=== PATIENT | male | born 1985 | race Two or more races ===

== ENCOUNTER 2019-10-29 19:42 | Emergency (ER) | payer OTHER ==
[~2019-10-29] VITALS: Ht 185.4 cm; Wt 81.4 kg
[2019-10-29 20:07] VITALS: BP 110/64
--- NOTE | 2019-10-29 20:29 | NUR ---
NO ANSWER FROM LOBBY
--- NOTE | 2019-10-29 21:03 | NUR ---
NOT IN LOBBY X 2
--- NOTE | 2019-10-29 21:40 | NUR ---
NO RESPONSE FROM LOBVALDEMAR X3
== END 2019-10-29 21:55 | disposition left against medical advice (07) ==
LOC: ED 21:49
DX: H91.90 Unspecified hearing loss, unspecified ear (principal); Z53.21 Procedure and treatment not carried out due to patient leaving prior to being seen by health care provider

== ENCOUNTER 2019-11-17 17:51 | Emergency (ER) | payer MEDICAID ==
[~2019-11-17] VITALS: Ht 188 cm; Wt 82.0 kg
--- NOTE | 2019-11-17 18:42 | NUR ---
NO ANSWER FROM TRIAGE
[2019-11-17 18:43] VITALS: BP 109/64
--- NOTE | 2019-11-17 20:03 | NUR ---
pt to room from lobby
== END 2019-11-17 21:54 | disposition home or self-care (01) ==
LOC: MERGE 21:15 → ED 21:15
DX: H10.023 Other mucopurulent conjunctivitis, bilateral (principal); F17.200 Nicotine dependence, unspecified, uncomplicated
CPT/HCPCS: 99283

== ENCOUNTER 2020-03-09 21:49 | Emergency (ER) | payer MEDICAID ==
[~2020-03-09] VITALS: Ht 188 cm; Wt 81.0 kg
[2020-03-09 21:50] VITALS: BP 138/81
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
== END 2020-03-09 23:27 ==
LOC: ED 22:50
DX: M79.651 Pain in right thigh (principal)
CPT/HCPCS: 99283